=== PATIENT | male | born 2005 | race Caucasian/White ===

== ENCOUNTER → 2025-06-14 | Outpatient (CLI) | payer SELFPAY, OTHER | END | disposition home or self-care (01) | PROVIDERS: Referring Provider Student in an Organized Health Care Education/Training Program; Visit Provider Student in an Organized Health Care Education/Training Program | DX: M86.142 Other acute osteomyelitis, left hand (principal); S62.661D Nondisplaced fracture of distal phalanx of left index finger, subsequent encounter for fracture with routine healing; S61.311D Laceration without foreign body of left index finger with damage to nail, subsequent encounter; X58.XXXD Exposure to other specified factors, subsequent encounter | CPT/HCPCS: 73218 ==

== ENCOUNTER 2025-06-22 12:48 | Day surgery (SDC) | payer OTHER, SELFPAY ==
[2025-06-22] VITALS (7 sets, daily range): BP systolic 113–128; BP diastolic 58–67; PULSE 63–85; RESP 16–20; TEMP 36.3–37; O2SAT 97–100; BMI 24.5
[2025-06-22] MEDS: Lactated Ringers 1,000 ML 15 ML IV (13:12)
--- NOTE | 2025-06-22 13:22 | PRE.ANES_ITS ---
ASA Classification* ASA Classification ASA Classification: 2 (Smoker) Assessment & Plan Anesthesia* Anesthesia Assessment Anesthesia Assessment: Discussed sedation and/or anesthesia options, risks, benefits, and alternatives with patient/parents/legal guardian/POA. Questions invited. The patient/parents/legal guardian/POA seems to understand and agrees to proceed with anesthesia plan. Reviewed the physical assessment, medical history, allergy history and patient home medications list prior to surgery/procedure/anesthetic and documented any changes. Performed airway and anesthesia risk assessments. Anesthesia Type Anesthesia Type: General and MAC History Source History Obtained from:: Patient and Chart Anesthesia Focused Assessment* Temperature: 98.6 F Pulse Rate: 85 Blood Pressure: 128/67 Respiratory Rate: 16 Pulse Ox: 100 Oxygen Delivery Method: Room Air Airway Assessment Mouth opens: >3 cm Mallampati Score: II Teeth Condition: Caps/Crowns Neck Range of motion (ROM): Full ROM Labs Anesthesia Preop lab: CBC CHEMISTRY COAG Pre-Assessment Diagnosis/Proposed Procedure Planned Operative Procedure(s): LEFT INDEX FINGER INCISION/IRRIGATION AND DRAINAGE Anesthesia History Anesthesia History - method consultant: Anesthesia History - method consultant Hx Hospitalization No 06/21/25 11:36 Any Problems With Anesthesia No 06/21/25 11:36 Cholinesterase deficiency No 06/21/25 11:36 You/Your Family Experience No 06/21/25 11:36 fever (hyperthermia) with Relationship Recent Exposure to Contagious No 06/22/25 13:08 Disease Does patient have nerve No 06/21/25 11:36 stimulator Patient instructed to have device shut off --Does patient have Pacemaker No 06/22/25 13:08 or ICD? When Was Last Pacemaker Check QUESTION #4 FULL TEXT: You/Your Family Experience fever (hyperthermia) with Anesthesia Last Oral Intake Last Oral intake: Last Oral Intake NPO since 09:00 06/22/25 13:08 Meds taken in AM with sips of No 06/22/25 13:08 water? Meds patient instructed to take am of surgery PONV PONV - method consultant: PONV - method consultant Female No 06/21/25 11:36 HX of Motion Sickness No 06/21/25 11:36 HX of N/V After Surgery No 06/21/25 11:36 Non-Smoker No 06/21/25 11:36 Duration of Surgery greater No 06/21/25 11:36 than 60 minutes Number of Risk Factors PONV Score Height & Weight Height & Weight: Anesthesia: Height & Weight Height 5 ft 8 in 06/22/25 13:08 Weight: 73 kg 06/22/25 13:08 Body Mass Index (BMI) 24.5 06/22/25 13:08 Respiratory Assessment Respiratory Assessment - method consultant: Respiratory Tract Infection Hx - method consultant Hx Respiratory Tract Infection No 06/21/25 11:36 STOP Sleep Apnea STOP Sleep Apnea - method consultant: STOP Sleep Apnea - method consultant Hx Hypertension No 06/21/25 11:36 Hx Sleep Apnea No 06/21/25 11:36 CPAP BIPAP Do you snore loudly (louder No 06/21/25 11:36 than talking or can be heard Do you often feel tired/ No 06/21/25 11:36 fatigued/ sleepy during daytime? Has anyone observed you stop No 06/21/25 11:36 breathing during sleep? STOP Results Negative 06/21/25 11:36 QUESTION #5 FULL TEXT : Do you snore loudly (louder than talking or can be h eard through closed doors)? Tobacco Use History Tobacco Use History - method consultant: Tobacco Use History - method consultant Tobacco Use Smoking Status Current every day smoker 06/21/25 11:36 Hx Tobacco Use Yes 06/21/25 11:36 Years Smoking Packs Smoked per Day Smoking Cessation Date was within the last 15 years Hx Smoking Cessation Date Hx Smoking Cessation Counseling Hematologic Medial History Hematologic Hx - method consultant: Hematologic Medical Hx - documentation engineer Hx of Blood Transfusion No 06/21/25 11:36 Hx of Transfusion in last 3 No 06/21/25 11:36 Months Date of Last Transfusion (if within last 3 months) Ever experience any problems No 06/21/25 11:36 with transfusion(s)? Specify any problems Hx of Preganancy in last 3 N/A 06/21/25 11:36 Months Nurse Filling Out Transfusion VLEHMAN 06/21/25 11:36 & Questions: Date: 06/21/25 06/21/25 11:36 Time: 11:41 06/21/25 11:36 Patient unable to answer at this time (ie. confused, unrespo /Reproduction History /Reproductive History - method consultant: /Reproductive Hx- method consultant Hx Now No 06/21/25 11:36 Gestational Age (in weeks): EDC: Hx Hx Para Hx Section SAB Active Medications Active Medications: Current Medications Generic Name Dose Route Start Last Admin Trade Name Freq PRN Reason Stop Dose Admin Cefazolin Sodium 2 gm/ Sodium 110 mls @ 200 mls/hr 06/22/25 13:30 Chloride IV 06/22/25 14:02 INTRAOP ONE Lactated Ringer's 1,000 mls @ 15 mls/hr 06/22/25 13:00 06/22/25 13:12 IV 15 mls/hr .Q48H YASMIN Administration PFSH Medical History Open wound Smoker Home Medications ?Medication ?Instructions ?Recorded ?Last Taken ?Type NK 06/21/25 Unknown History Allergy/AdvReac Type Severity Reaction Status Date / Time No Known Allergies Allergy Verified 06/22/25 13:07 Surgical History No history of previous surgery Social History Smoking Status: Current every day smoker tobacco type: cigarettes Review of Systems (Anesthesia) ROS Narrative System reviewed and no additional complaints, except as documented.
[2025-06-22] MEDS: Lidocaine 1% /Epi 1:100 (20ml) 20 ML Vial (13:55)
[2025-06-22] MEDS: Cefazolin 1 GM/5 ML Vial 2 GM IV (13:59)
[2025-06-22] MEDS: Midazolam 2 MG/2 ML Syringe IV (13:59)
[2025-06-22] MEDS: Lidocaine 1% (5 ml sdv) 5 ML Vial IV (13:59)
--- NOTE | 2025-06-22 14:26 | PCM.OPRPT ---
Operative Report (Standard) Operative Information Date of Procedure: 06/22/25 Pre-Operative Diagnosis: Left index finger distal phalanx osteomyelitis Post-Operative Diagnosis: Left index finger distal phalanx osteomyelitis Surgery/Procedure Performed: Left index finger distal phalanx irrigation and debridement retort kiln burner: No Type of Anesthesia: MAC RN Documented Start/Stop Times: Operation Date: 06/22/25 14:30 Case Time Into Pre-Op 06/22/25 12:54 Out of Pre-Op 06/22/25 13:40 Anesthesia Start 06/22/25 13:46 Into Room 06/22/25 13:46 Procedure Start 06/22/25 14:02 Procedure End 06/22/25 14:22 Procedure Start Time: 14:02 Procedure Stop Time: 14:22 Select all DRAINS/GRAFTS/IMPLANTS that apply: None Estimated Blood Loss: 5 cc Specimen collected: Yes Description of specimen(s) removed: Fluid culture from distal phalanx corticotomy aerobic and anaerobic Description of surgery: Patient was brought the operative suite and positioned supine on standard operating table. MAC anesthesia was achieved. Digital nerve block was administered by myself prior to prepping with combination of 1% lidocaine with epinephrine and 0.5% bupivacaine plain in a 50: 50 mixture. We prepped and draped the left hand in normal, sterile orthopedic fashion. A timeout was called confirming the side, site, and operation to be performed. No concerns were voiced elected proceed with surgery. 2 g Ancef was administered IV prior to the 2 incision by anesthesia staff. I then applied a turnicot. Adequate anesthesia was confirmed. I made a mid axial approach to the distal phalanx along the ulnar side of the finger. Flaps were developed down to the level of the distal phalanx. The volar ulnar corner was identified. Flexor tendon was noted to be pristine. Tissue did not appear acutely inflamed or any obvious signs of infection. I used a [place] to probe the volar and ulnar cortex of the entire distal phalanx. No findings of pathologic bone or fracture were noted. I applied significant force and the cortex appeared to be hudson and intact. I then used a 0.62 inch K wire to fenestrate the volar and ulnar cortex of the distal phalanx working from proximal to distal. Serous fluid was evacuated from the fenestrations and was swabbed for culture purposes. No purulence was identified. Minimal bone was debrided. I then irrigated through the fenestrations with normal saline as well as copiously within the incision. Turnicot was then removed. Hemostasis was excellent. Skin edges were reapproximated loosely with interrupted simple 4-0 Prolene. Bulky sterile compression dressing was applied as well as a volar-based AlumaFoam splint to the finger. Anesthesia was reversed and patient was awakened in the operative suite. He tolerated the procedure well without apparent complication. He was transferred to his gurney and subsequently to PACU in stable condition. Postoperative plan: Maintain splint x 5 days. Will restart antibiotics with Keflex and Bactrim. Follow-up cultures with targeted antibiotic therapy as appropriate. Follow-up in 2 weeks for wound assessment and likely suture removal. Ice and elevation encouraged. Multimodal pain management Tylenol, ibuprofen and oxycodone. No indication for anticoagulant or antiplatelet therapy. Surgical Findings: No obvious signs of infection. No pathologic bony abnormalities. Minimal fluid within the distal phalanx sent for culture. Complications Complications: No Admit VTE Documentation VTE Present on Admission: No VTE Mechan Device Prophylaxis: SCD's VTE Pharm Prophylaxis ordered?: No Reason prophylaxis not ordered: Treatment Not Indicated
--- NOTE | 2025-06-22 14:32 | PCM.POST.ANE ---
Anesthesia: Postop Eval I Current Vital Signs Temperature: 97.4 F Pulse Rate: 63 Blood Pressure: 113/64 Respiratory Rate: 20 Pulse Ox: 99 Oxygen Delivery Method: Room Air Assessment Airway patent: Yes Spontaneous unlabored respirations: Yes Mental status: Awake and Calm nausea: No Vomiting: No Anesthesia Complication: No Fluid Hydration Crystalloid volume administer (ml): 300 Total IV fluid infused: 300 Progress Note Anesthesia document: Postop Eval 1 completed: Yes
--- NOTE | 2025-06-22 15:35 | POSTOPAN2_ITS ---
Anesthesia Postop Eval I Sum Postop Eval Completion status Anesthesia document: Postop Eval 1 completed: Yes Anesthesia Postop Eval I Summary Anesthesia Postop Eval I Summary: Anesthesia Postop Eval I: Assessment Summary Airway patent Yes 06/22/25 14:33 ASSOCIATE PROFESSOR OF ART.[email or web address] Spontaneous unlabored Yes 06/22/25 14:33 ASSOCIATE PROFESSOR OF ART.JDEF respirations Mental status Awake,Calm 06/22/25 14:33 ASSOCIATE PROFESSOR OF ART.JDEF nausea No 06/22/25 14:33 ASSOCIATE PROFESSOR OF ART.JDEF Vomiting No 06/22/25 14:33 ASSOCIATE PROFESSOR OF ART.JDEF Anesthesia Postop Eval I: Fluid Summary Crystalloid volume administer 300 06/22/25 14:33 ASSOCIATE PROFESSOR OF ART.JDEF (ml) Colloids volume administered ( ml) Blood Product volume administered (ml) Total IV fluid infused 300 06/22/25 14:33 ASSOCIATE PROFESSOR OF ART.JDEF Anesthesia Postop Eval I: Summary Notes Anesthesia Complication No 06/22/25 14:33 ASSOCIATE PROFESSOR OF ART.JDEF Anesthesia Complication Comment: Post-operative progress note Anesthesia: Postop Eval II Evaluation Mental status: Awake and Calm Pain Level: 1 nausea: No Vomiting: No Complications Anesthesia Complication: No
--- NOTE | 2025-06-22 15:35 | PCM.POSTANE2 ---
Anesthesia Postop Eval I Sum Postop Eval Completion status Anesthesia document: Postop Eval 1 completed: Yes Anesthesia Postop Eval I Summary Anesthesia Postop Eval I Summary: Anesthesia Postop Eval I: Assessment Summary Airway patent Yes 06/22/25 14:33 BUSINESS INTELLIGENCE MANAGER.[email or web address] Spontaneous unlabored Yes 06/22/25 14:33 BUSINESS INTELLIGENCE MANAGER.JDEF respirations Mental status Awake,Calm 06/22/25 14:33 BUSINESS INTELLIGENCE MANAGER.JDEF nausea No 06/22/25 14:33 BUSINESS INTELLIGENCE MANAGER.JDEF Vomiting No 06/22/25 14:33 BUSINESS INTELLIGENCE MANAGER.JDEF Anesthesia Postop Eval I: Fluid Summary Crystalloid volume administer 300 06/22/25 14:33 BUSINESS INTELLIGENCE MANAGER.JDEF (ml) Colloids volume administered ( ml) Blood Product volume administered (ml) Total IV fluid infused 300 06/22/25 14:33 BUSINESS INTELLIGENCE MANAGER.JDEF Anesthesia Postop Eval I: Summary Notes Anesthesia Complication No 06/22/25 14:33 BUSINESS INTELLIGENCE MANAGER.JDEF Anesthesia Complication Comment: Post-operative progress note Anesthesia: Postop Eval II Evaluation Mental status: Awake and Calm Pain Level: 1 nausea: No Vomiting: No Complications Anesthesia Complication: No
== END 2025-06-22 15:18 | disposition home or self-care (01) ==
LOC: SDC 12:49 → AC 12:51
PROVIDERS: PCP Family Medicine; Referring Provider Student in an Organized Health Care Education/Training Program; Visit Provider Student in an Organized Health Care Education/Training Program
PROC: (CPT 11044; principal; 2025-06-22 14:15)
DX: M86.9 Osteomyelitis, unspecified (principal)
CPT/HCPCS: 11044; 01830; 87070; 87075; 87205; J2405